=== PATIENT | male | born 2000 | race Caucasian/White ===

== ENCOUNTER 2021-06-05 18:34 | Emergency (ER) | payer OTHER ==
[~2021-06-05] VITALS: Ht 182.9 cm; Wt 72.7 kg
--- NOTE | 2021-06-05 20:51 | PHYS DOC ---
Past Medical History Past Surgical History: No Surgical History General Adult EDM: Chief Complaint: ABDOMINAL PAIN HPI: HPI: Patient is a 20-year-old male who presents to the emergency department for upper abdominal pain with nausea, vomiting and diarrhea that started 6 hours ago. Patient is unable to tell me how many times he vomited but he states it is "too many to count". Patient is rating his pain 10 out of 10. No aggravating factors. Patient denies any fevers, sick exposures or blood in his stool or vomit. 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 Review of Systems: Review of Systems: Constitutional: See HPI GI: See HPI : See HPI Heart Score: C/O Chest Pain: N/A Risk Factors: Risk Factors: DM, Current or recent (<one month) smoker, HTN, HLP, family history of CAD, obesity. Risk Scores: Score 0 - 3: 2.5% MACE over next 6 weeks - Discharge Home Score 4 - 6: 20.3% MACE over next 6 weeks - Admit for Clinical Observation Score 7 - 10: 72.7% MACE over next 6 weeks - Early Invasive Strategies Physical Exam: PE: Constitutional: Well developed, well nourished, no acute distress, non-toxic appearance. [] HENT: Normocephalic, atraumatic, bilateral external ears normal, oropharynx moist, no oral exudates, nose normal. [] Eyes: PERRL, EOMI, conjunctiva normal, no discharge. [] Neck: Normal range of motion, no stridor Cardiovascular:Heart rate regular rhythm, no murmur [] Lungs & Thorax: Bilateral breath sounds clear to auscultation [] Abdomen: Bowel sounds normal, soft, negative Moctezuma sign, negative Rovsing sign, tenderness with palpation to right lower quadrant, no rebound tenderness, no rigidity or guarding, no masses, no pulsatile masses. [] Skin: Warm, dry, no erythema, no rash. [] Back: No tenderness, normal range of motion Extremities: No tenderness, no cyanosis, no clubbing, ROM intact, no edema. [] Neurologic: Alert and oriented X 3, normal motor function, normal sensory function, no focal deficits noted. [] Psychologic: Affect normal, judgement normal, mood normal. [] Current Patient Data: Labs: Laboratory Tests Test 12/2/21 20:58 06/05/21 22:22 06/05/21 22:28 White Blood Count 16.6 x10^3/uL Red Blood Count 5.11 x10^6/uL Hemoglobin 16.0 g/dL Hematocrit 46.2 % Mean Corpuscular Volume 91 fL Mean Corpuscular Hemoglobin 31 pg Mean Corpuscular Hemoglobin Concent 35 g/dL Red Cell Distribution Width 12.3 % Platelet Count 337 x10^3/uL Neutrophils (%) (Auto) 92 % Lymphocytes (%) (Auto) 3 % Monocytes (%) (Auto) 5 % Eosinophils (%) (Auto) 0 % Basophils (%) (Auto) 0 % Neutrophils # (Auto) 15.2 x10^3/uL Lymphocytes # (Auto) 0.5 x10^3/uL Monocytes # (Auto) 0.8 x10^3/uL Eosinophils # (Auto) 0.0 x10^3/uL Basophils # (Auto) 0.0 x10^3/uL Segmented Neutrophils % 77 % Band Neutrophils % 12 % Lymphocytes % 6 % Monocytes % 5 % Platelet Estimate Adequate Sodium Level 139 mmol/L Potassium Level 3.9 mmol/L Chloride Level 103 mmol/L Carbon Dioxide Level 25 mmol/L Anion Gap 11 Blood Urea Nitrogen 15 mg/dL Creatinine 1.0 mg/dL Estimated GFR (Cockcroft-Gault) 94.3 BUN/Creatinine Ratio 15 Glucose Level 128 mg/dL Calcium Level 9.4 mg/dL Total Bilirubin 1.2 mg/dL Aspartate Amino Transf (AST/SGOT) 21 U/L Alanine Aminotransferase (ALT/SGPT) 35 U/L Alkaline Phosphatase 73 U/L Troponin I High Sensitivity < 4 ng/L Total Protein 7.8 g/dL Albumin 4.8 g/dL Albumin/Globulin Ratio 1.6 Lipase 152 U/L Urine Collection Type Unknown Urine Color Yellow Urine Clarity Clear Urine pH 5.5 Urine Specific [place] >=1.030 Urine Protein Negative mg/dL Urine Glucose (UA) Negative mg/dL Urine Ketones (Stick) 15 mg/dL Urine Blood Negative Urine Nitrite Negative Urine Bilirubin Negative Urine Urobilinogen Dipstick 0.2 mg/dL Urine Leukocyte Esterase Negative Urine RBC Rare /HPF Urine WBC 0 /HPF Urine Squamous Epithelial Cells Occ /LPF Urine Bacteria 0 /HPF SARS-CoV-2 Antigen (Rapid) Negative Current Medications Medications (Trade) Dose Ordered Sig/Anam Route PRN Reason Start Time Stop Time Status Last Admin Dose Admin Sodium Chloride 1,000 ml @ 1,000 mls/hr Q1H IV 06/05/21 21:30 06/05/21 22:29 DC 06/05/21 21:12 Fentanyl Citrate (Fentanyl 2ml Vial) 50 mcg 1X ONCE IVP 06/05/21 21:30 06/05/21 21:31 DC 06/05/21 21:12 Ondansetron HCl (Zofran) 4 mg 1X ONCE IVP 06/05/21 21:30 06/05/21 21:31 DC 06/05/21 21:12 Iohexol (Omnipaque 300 Mg/ml) 75 ml 1X ONCE IV 06/05/21 22:00 06/05/21 22:01 DC 06/05/21 21:35 Info (CONTRAST GIVEN -- Rx MONITORING) 1 each PRN DAILY PRN MC SEE COMMENTS 06/05/21 21:45 06/07/21 21:44 Vital Signs: Vital Signs Date Time Temp Pulse Resp B/P (MAP) Pulse Ox O2 Delivery O2 Flow Rate FiO2 06/05/21 20:27 97.6 88 21 127/84 (98) 100 Room Air 97.6 EKG: EKG: [] Radiology/Procedures: Radiology/Procedures: []PROCEDURE: CT ABD PELV W/ IV CONTRST ONLY PQRS Compliance Statement: One or more of the following individualized dose reduction techniques were utilized for this examination: 1. Automated exposure control 2. Adjustment of the mA and/or kV according to patient size 3. Use of iterative reconstruction technique CT ABDOMEN+PELVIS W Clinical Indication: Reason: abd pain / Comparison: None. Technique: Helical CT imaging of the abdomen and pelvis is performed after 75 cc of Omnipaque 300 IV contrast. Oral contrast not administered. Findings: Lung bases are clear. Cardiac size normal. The liver, gallbladder, spleen, pancreas, adrenal glands, and abdominal aorta are normal. 3 mm nonobstructing calculus upper pole of right kidney. Kidneys enhance symmetrically, no hydronephrosis. The stomach is unremarkable. Small fat-containing umbilical hernia is suggested. There is no dilated small bowel. The appendix is normal. There is no colon wall thickening. There is no abdominal adenopathy or free fluid. There are several subcentimeter mesenteric lymph nodes. Urinary bladder is normal. The prostate and seminal vesicles are normal. There is no pelvic free fluid. There is no acute bone abnormality. IMPRESSION: 1. No acute abdominal or pelvic abnormality. 2. Nonobstructing right renal calculus. Electronically signed by: Yamil Wilson MD (06/05/2021 9:54 PM) [facility] DICTATED and SIGNED BY: YAMIL WILSON MD DATE: 06/05/21 [id number] 0 Course & Med Decision Making: Course & Med Decision Making Pertinent Labs and Imaging studies reviewed. (See chart for details) [] Patient presents to the emergency department for upper abdominal pain with nausea, vomiting and diarrhea that started 6 hours prior to arrival. Work-up in the ER consisted of urinalysis, blood work and CT imaging of abdomen and pelvis. Patient's CBC shows leukocytosis with a white blood cell count of 16.16 this is likely due to his nausea and vomiting. CMP was unremarkable. Urinalysis was unremarkable. Patient is Covid test is P8 pending at this time. Patient advised to self isolate until he receives results. CT scan of abdomen showed a nonobstructing right renal colic in the upper pole of the kidney due to this is not likely the cause of his abdominal pain. Patient p.o. challenge in the emergency department following treatment was able to tolerate oral fluids. Patient will be discharged home with Zofran to take for nausea and vomiting. Advised to follow-up with his primary care provider. I discussed with patient all findings and diagnostic testing as well as the need to follow-up with PCP for further evaluation and treatment or return to the ER if any new or worsening symptoms. Strict return precautions were also discussed at length. Patient voiced understanding and agreement with the plan. Patient is hemodynamically stable at the time of disposition. Dragon Disclaimer: Dragon Disclaimer: This electronic medical record was generated, in whole or in part, using a voice recognition dictation system. Departure Departure Impression: Primary Impression: Nausea & vomiting Qualified Codes: R11.2 - Nausea with vomiting, unspecified Additional Impression: Person under investigation for COVID-19 Disposition: HOME / SELF CARE / HOMELESS Condition: GOOD Referrals: NO PCP (PCP) Patient Instructions: Nausea and Vomiting Additional Instructions: You were seen in the emergency department today for nausea, vomiting and abdominal pain. Your blood work was unremarkable. Your urinalysis was unremarkable. Your CT scan of your abdomen and pelvis shows a nonobstructing right renal calculus still in your kidney, this is likely not the cause of your abdominal pain but an incidental finding. You were Covid tested in the emergency department and this is pending. Please self isolate until you receive a phone call from us with the results. Increase your fluids. You are being discharged home with nausea medication, take this as directed. Please stick to a clear liquid diet over the next 24 hours which includes Jell-O, Gatorade, soups. Following that you should stick to a bland diet such as the brat diet which includes bananas, rice, applesauce and toast. Avoid spicy, greasy or fatty foods. Follow-up with your primary care provider tomorrow regarding your emergency department visit. Please return to the emergency department if you develop severe abdominal pain, severe back pain, high fevers refractory to treatment, intractable nausea or vomiting, blood in your stools or vomit. Scripts Ondansetron (ONDANSETRON ODT) 4 Mg Tab.rapdis 1 TAB PO PRN Q6-8HRS for 7 Days, #16 TAB 0 Refills Prov: DIANE GIL APRN 06/05/21 DIANE GIL APRN Jun 05, 2021 20:51
[2021-06-05 21:06] LABS: BASO % 0 % (0-3); EOS % 0 % (0-3); HEMATOCRIT 46.2 % (39.0-53.0); LYMPH # 0.5 x10^3/uL (1.0-4.8); LYMPH % 3 % (24-48); MEAN CORPUSCULAR HEMOGLOBIN 31 pg (25-35); MEAN CORPUSCULAR HGB CONC 35 g/dL (31-37); MEAN CORPUSCULAR VOLUME 91 fL (79-100); MONO # 0.8 x10^3/uL (0.0-1.1); MONO % 5 % (0-9); NEUT # 15.2 x10^3/uL (1.8-7.7); NEUT % 92 % (31-73); PLATELET COUNT 337 x10^3/uL (140-400); RED BLOOD COUNT 5.11 x10^6/uL (4.30-5.70); RED CELL DISTRIBUTION WIDTH 12.3 % (11.5-14.5); WHITE BLOOD COUNT 16.6 x10^3/uL (4.0-11.0)
[2021-06-05 21:18] LABS: CALCIUM 9.4 mg/dL (8.5-10.1); GFR 94.3; POTASSIUM 3.9 mmol/L (3.5-5.1)
[2021-06-05 21:24] LABS: ALBUMIN 4.8 g/dL (3.4-5.0); ALBUMIN/GLOBULIN RATIO 1.6 (1.0-1.7); TOTAL BILIRUBIN 1.2 mg/dL (0.2-1.0); TOTAL PROTEIN 7.8 g/dL (6.4-8.2)
[2021-06-05] MEDS ORDERED: ONDANSETRON PF 4 MG/2 ML VIAL. IVP ONE ×2 (21:30→23:45)
[2021-06-05] MEDS ORDERED: fentaNYL PF VIAL 100 MCG/2 ML VIAL IVP ONE (21:30)
[2021-06-05] MEDS ORDERED: IV NORMAL SALINE 1000ML BAG 1,000 ML IV SCH (21:30)
[2021-06-05 21:34] LABS: % BANDS 12 % (0-9); % LYMPHS 6 % (24-48); % MONOS 5 % (0-10); % SEGS 77 % (35-66); PLT ESTIMATE ADEQUATE (ADEQUATE)
[2021-06-05] MEDS ORDERED: CONTRAST GIVEN. MC PRN (21:45)
--- NOTE | 2021-06-05 21:56 | RAD ---
PQRS Compliance Statement: One or more of the following individualized dose reduction techniques were utilized for this examinat ion: 1. Automated exposure control 2. Adjustment of the mA and/or kV according to patient size 3. Use of iterative reconstruction technique CT ABDOMEN+PELVIS W Clinical Indication: Reason: abd pain / Comparison: None. Technique: Helical CT imaging of the abdomen and pelvis is performed after 75 cc of Omnipaque 300 IV contrast. Oral contrast not administered. Findings: Lung bases are clear. Cardiac size normal. The liver, gallbladder, spleen, pancreas, adrenal glands, and abdominal aorta are normal. 3 mm nonobstructing calculus upper pole of right kidney. Kidneys enhance symmetrically, no hydronephr osis. The stomach is unremarkable. Small fat-containing umbilical hernia is suggested. There is no dilated small bowel. The appendix is normal. There is no colon wall thickening. There is no abdominal adenopa thy or free fluid. There are several subcentimeter mesenteric lymph nodes. Urinary bladder is normal. The prostate and seminal vesicles are normal. There is no pelvic free flui d. There is no acute bone abnormality. IMPRESSION: 1. No acute abdominal or pelvic abnormality. 2. Nonobstructing right renal calculus. Electronically signed by: Yamil Traore MD (06/05/2021 9:54 PM) [facility]
[2021-06-05] MEDS ORDERED: IOHEXOL 300 MG/ML 100ML VIAL. IV ONE (22:00)
[2021-06-05 22:47] LABS: BILIRUBIN,URINE NEGATIVE (NEG); CLARITY,URINE CLEAR; COLOR,URINE YELLOW; NITRITE,URINE NEGATIVE (NEG); PH,URINE 5.5 (<5.0-8.0); PROTEIN,URINE NEGATIVE (NEG-TRACE); UROBILINOGEN,URINE 0.2 mg/dL (0.2 mg/dL)
[2021-06-05 22:58] LABS: BACTERIA,URINE 0 /HPF (0-FEW); RBC,URINE RARE /HPF (0-2); WBC,URINE 0 /HPF (0-4)
[2021-06-05] MEDS ORDERED: ONDA4TAB12 PO (23:26)
[2021-06-05 23:46] VITALS: BP 111/65
--- NOTE | 2021-06-06 15:33 | NUR ---
IP: Informed pt of negative covid test. Pt verbalized understanding.
== END 2021-06-05 23:53 | disposition home or self-care (01) ==
LOC: ER 18:34
DX: R11.2 Nausea with vomiting, unspecified (principal); R19.7 Diarrhea, unspecified; R10.31 Right lower quadrant pain; Z20.822 Contact with and (suspected) exposure to COVID-19
CPT/HCPCS: 36415; 74177; 80053; 81001; 83690; 84484; 85007; 85025; 87426; 96361; 96374; 96375; 96376; 99285; J2405; J3010; J7030; Q9967; U0003; U0005